=== PATIENT | male | born 1975 | race Caucasian/White ===

== ENCOUNTER 2017-10-26 07:59 | Inpatient (IN) | payer OTHER ==
[~2017-10-26] VITALS: Ht 182.9 cm; Wt 86.4 kg
[~2017-10-26 07:59] MED LIST: OXYC10 PO
[2017-10-26] MEDS ORDERED: RINGERS SOLUTION,LACTATED 1,000 ML IV ONE ×2 (08:00→08:21)
[2017-10-26] MEDS ORDERED: CeFAZolin 2 GM/DEXTROSE 50 ML IV ONE ×2 (08:00→08:21)
[2017-10-26] MEDS ORDERED: ACETAMINOPHEN 1000 MG/ISO-OSM 100 ML IV ONE (08:40)
[2017-10-26 08:51] LABS: BASOPHILS % (AUTO) 0.6 % (0.0-2.0); EOSINOPHILS % (AUTO) 0.4 % (1.0-6.0); HEMATOCRIT 42.8 % (41-53); LYMPHOCYTES # (AUTO) 0.9 K/uL (1.0-4.8); LYMPHOCYTES % (AUTO) 12.7 % (22.0-44.0); MEAN CORPUSCULAR HEMOGLOBIN 31.7 pg (26.0-34.0); MEAN CORPUSCULAR VOLUME 91 fL (80-100); MONOCYTES # (AUTO) 0.5 K/uL (0.1-1.0); MONOCYTES % (AUTO) 7.4 % (2.0-9.0); NEUTROPHILS # (AUTO) 5.5 K/uL (1.8-7.7); NEUTROPHILS % (AUTO) 78.9 % (40.0-70.0); PLATELET COUNT (AUTO) 226 K/uL (150-450); RED BLOOD CELL COUNT(AUTO) 4.72 MIL/uL (4.50-5.90); RED CELL DISTRIBUTION WIDTH 13.7 % (11.5-14.5)
[2017-10-26] MEDS ORDERED: VANCOMYCIN HCL 1 GM/VIAL ONE (09:00)
[2017-10-26] MEDS ORDERED: BUPIVACAINE HCL/PF 0.5% 30 ML VIAL ONE (09:00)
[2017-10-26 09:04] LABS: INR 0.9 (0.9-1.1); PROTHROMBIN TIME 9.7 SEC (9.4-11.6)
[2017-10-26] MEDS ORDERED: BUPIVACAINE LIPOSOME/PF 1.3%-13.3MG/ML SUSPENSION 10 ML VIAL INJ ONE (09:15)
[2017-10-26] MEDS ORDERED: OxyCODONE HCL 5 MG IR TABLET PO PRN (09:15)
[2017-10-26] MEDS ORDERED: DIAZEPAM 10 MG TABLET PO ONE (09:15)
[2017-10-26] MEDS ORDERED: OxyCODONE HCL 10 MG IR TABLET PO PRN (09:22)
[2017-10-26] MEDS ORDERED: HYDROmorphone 2 MG/ML SYRINGE IVP PRN (10:00)
[2017-10-26] MEDS ORDERED: CYCLOBENZAPRINE HCL 10 MG TABLET PO PRN (10:00)
[2017-10-26] MEDS ORDERED: MEPERIDINE-PF 25 MG/ML SYRINGE IVP PRN (10:00)
[2017-10-26] MEDS ORDERED: ONDANSETRON HCL 4 MG/2 ML VIAL IVP PRN (10:00)
[2017-10-26] MEDS ORDERED: PROMETHAZINE HCL 25 MG/ML VIAL IM PRN (10:00)
[2017-10-26] MEDS ORDERED: FentaNYL CITRATE-PF 100 MCG/2 ML VIAL IVP PRN (10:00)
[2017-10-26] MEDS ORDERED: DEXAMETHASONE SOD PHOS 4 MG/ML VIAL IVP PRN (10:30)
[2017-10-26] MEDS ORDERED: DiphenhydrAMINE HCL 50 MG/ML VIAL IVP PRN (10:30)
[2017-10-26] MEDS ORDERED: BENZOCAINE/MENTHOL LOZENGE [8 LOZENGES/PACKET] PO PRN (10:30)
[2017-10-26] MEDS ORDERED: ZOLPIDEM TARTRATE 10 MG TABLET PO PRN (10:30)
[2017-10-26 11:44] VITALS: BP 152/107
[2017-10-26] MEDS: HYDROmorphone 2 MG/ML SYRINGE IVP PRN ×2 (11:55→15:56)
[2017-10-26] MEDS ORDERED: OXYC10IR PO (12:10)
[2017-10-26] MEDS ORDERED: DIAZEPAM 5 MG TABLET PO ONE (12:15)
[2017-10-26] MEDS ORDERED: ACETAMINOPHEN 1000 MG/ISO-OSM 100 ML IV SCH (15:00)
[2017-10-26 15:24] VITALS: BP 149/95
[2017-10-26] MEDS ORDERED: SODIUM CHLORIDE 0.9% 250 ML IV ONE (16:03)
[2017-10-26 16:43] VITALS: BP 139/96
[2017-10-26] MEDS ORDERED: MORPHINE SULFATE/PF 0.5 MG/ML 10 ML AMP IVP ONE (17:19)
[2017-10-26] MEDS ORDERED: ONDANSETRON HCL 4 MG/2 ML VIAL IVP ONE (17:19)
[2017-10-26] MEDS ORDERED: KETOROLAC TROMETHAMINE 60 MG/2 ML VIAL IM ONE (17:19)
[2017-10-26] MEDS ORDERED: FentaNYL CITRATE-PF 100 MCG/2 ML VIAL IVP ONE (17:19)
[2017-10-26] MEDS ORDERED: DEXAMETHASONE SOD PHOS 4 MG/ML VIAL IVP ONE (17:19)
[2017-10-26] MEDS ORDERED: MIDAZOLAM HCL 2 MG/2 ML VIAL IVP ONE (17:19)
[2017-10-26] MEDS ORDERED: LIDOCAINE HCL/PF 2% 5 ML VIAL IM ONE (17:19)
[2017-10-26] MEDS ORDERED: PROPOFOL 1% 20 ML VIAL IVP ONE (17:19)
[2017-10-26] MEDS ORDERED: SUCCINYLCHOLINE CHLORIDE 20 MG/ML 10 ML VIAL IVP ONE (17:19)
[2017-10-26] MEDS ORDERED: OXYGEN THERAPY IH SCH (20:00)
[2017-10-26] MEDS ORDERED: DOCUSATE SODIUM 100 MG CAPSULE PO SCH (21:00)
== END 2017-10-26 17:20 | disposition home or self-care (01) | DRG 520 ==
LOC: 4E 07:59
PROVIDERS: ADMIT Orthopaedic Surgery Orthopaedic Surgery of the Spine; ATTEND Orthopaedic Surgery Orthopaedic Surgery of the Spine
PROC: 0SB20ZZ Excision of Lumbar Vertebral Disc, Open Approach (ICD-10-PCS; principal; 2017-10-26 11:00)
DX: M51.26 Other intervertebral disc displacement, lumbar region (principal)
CPT/HCPCS: 87081; 97161; 97165; 97535; J0131; J0330; J0690; J1100; J1170; J1885; J2250; J2274; J2405; J2704; J3010; J3370; J3490; J7050; J7120